=== PATIENT | female | born 1985 | race Caucasian/White ===

== ENCOUNTER 2022-01-20 12:03 | Observation (INO) | payer OTHER ==
[~2022-01-20] VITALS: Ht 157.5 cm; Wt 54.9 kg
[2022-01-20 13:19] LABS: HEMOGLOBIN 11.6 gm/dl (12.3-15.3); RED BLOOD COUNT 3.75 M/UL (4.00-5.10); WHITE BLOOD COUNT 7.5 K/UL (4.5-11.0)
[2022-01-20 13:34] LABS: BUN/CREATININE RATIO 8 (0-10)
[2022-01-20] MEDS ORDERED: VENLAFAXINE HC150 MG PO (16:34)
[2022-01-20] MEDS ORDERED: EFFEXOR XR 75 M75 MG PO (16:34)
[2022-01-20] MEDS ORDERED: PROTONIX 40 MG40 M1 PO (16:35)
[2022-01-21 04:57] LABS: HEMOGLOBIN 10.6 gm/dl (12.3-15.3); RED BLOOD COUNT 3.4 M/UL (4.00-5.10)
[2022-01-21 04:59] LABS: WHITE BLOOD COUNT 5.2 K/UL (4.5-11.0)
[2022-01-21 05:12] LABS: BUN/CREATININE RATIO 8 (0-10)
[2022-01-22 08:14] LABS: HIV AB/P24 AG SCREEN Non Reactive (Non Reactive)
[2022-01-22 09:14] LABS: HBSAG SCREEN Negative (Negative); HEP A AB, IGM Negative (Negative); HEP B CORE AB, IGM Negative (Negative); HEP C VIRUS AB <0.1 (0.0-0.9)
[2022-01-22] MEDS ORDERED: DOCUSATE SODIU100 MG PO (18:40)
[2022-01-22] MEDS ORDERED: OMNICEF 300 MG300 MG PO (18:40)
[2022-01-22] MEDS ORDERED: MELATONIN3 MG PO (18:40)
[2022-01-22] MEDS ORDERED: POLYETHYLENE GL17 GM PO (18:40)
== END 2022-01-22 20:58 | disposition home or self-care (01) ==
LOC: ER1 12:03 → M/S 14:10 → CDU 15:55 → M/S 18:32
PROVIDERS: Nurse Practitioner; Physician Assistant Medical; ADMIT Internal Medicine
DX: R55 Syncope and collapse (principal); I65.23 Occlusion and stenosis of bilateral carotid arteries; R91.8 Other nonspecific abnormal finding of lung field; N30.00 Acute cystitis without hematuria; I95.9 Hypotension, unspecified; K76.9 Liver disease, unspecified; I10 Essential (primary) hypertension; F41.8 Other specified anxiety disorders; F17.210 Nicotine dependence, cigarettes, uncomplicated; F19.10 Other psychoactive substance abuse, uncomplicated; R10.9 Unspecified abdominal pain; K59.00 Constipation, unspecified; R09.02 Hypoxemia; R16.0 Hepatomegaly, not elsewhere classified; R53.83 Other fatigue; Z20.822 Contact with and (suspected) exposure to COVID-19; Z98.890 Other specified postprocedural states; Z90.49 Acquired absence of other specified parts of digestive tract; Z87.11 Personal history of peptic ulcer disease; Z79.899 Other long term (current) drug therapy; Z98.84 Bariatric surgery status
CPT/HCPCS: ECHO; 0240U; 36415; 70450; 70496; 70498; 71045; 71250; 74183; 80048; 80053; 80061; 80074; 80307; 81001; 82105; 82150; 82533; 82550; 82553; 83605; 83735; 84439; 84443; 84484; 84703; 85025; 85027; 86331; 86602; 86609; 86671; 87040; 87389; 93005; 93306; 93880; 94760; 96374; 96375; 96376; 99285; A9577; G0378; J0692; J0696; J1885; J2270; J2405; J7030; Q9967